=== PATIENT | male | born 1970 | race Caucasian/White ===

== ENCOUNTER → 2022-10-22 | Outpatient (CLI) | payer OTHER, SELFPAY ==
[2022-10-22 07:08] LABS: Basophil# 0.03 X10^3/uL; Basophil% 0.4 % (0-1); Eosinophil# 0.09 X10^3/uL; Eosinophils% 1.1 % (0-5); Hematocrit 43.7 % (40-54); Hemoglobin 14.6 g/dL (13.0-16.5); Lymphocyte % 27.9 % (19-41); Mean Corp Hgb Conc 33.4 g/dL (32-36); Mean Corpuscular Volume 89.9 fL (80-94); Mean Platelet Vol. 8.7 fl (6.2-12.0); Monocyte# 0.76 X10^3/uL; Monocyte% 9.2 % (0-10); NRBC Flagged by Analyzer 0 % (0-5); Neutrophil # 5.04 X10^3/uL (2.7-7.7); Platelet Count 281 K/mm3 (150-450); RBC Distribution Width CV 12.4 % (11.6-14.6); RBC Distribution Width SD 40.4 fl (35.1-43.9); Red Blood Count 4.86 M/mm3 (4.6-6.2); White Blood Count 8.3 K/mm3 (4.4-11.0)
[2022-10-22 07:43] LABS: ALB/GLOB Ratio 1.1 RATIO (0.9-2.4); AST(SGOT) 23 U/L (15-37); Alanine Aminotransfer ALT/SGPT 42 U/L (16-61); Albumin, Serum 3.9 g/dL (3.2-5.0); Alkaline Phosphatase 82 U/L (45-117); Anion Gap 7 (5-15); BUN 18 mg/dL (7-18); BUN/Creat Ratio 17.8 RATIO (10-20); Calcium,Total 9.2 mg/dL (8.5-10.1); Chloride 103 mmol/L (98-107); Cholesterol 206 mg/dL (200); Creatinine, Serum 1.01 mg/dL (0.70-1.30); EST Glomerular Filtration Rate 82 mL/min (>60); Est Glom Filt Rate - Afr Amer 99 mL/min (>60); Globulin 3.6 g/dL (2.2-4.2); Glucose 116 mg/dL (74-106); High Density Lipoprotein 52 mg/dL; PSA,Total - Annual Screen 0.72 ng/mL (0.00-4.00); Potassium 4.1 mmol/L (3.5-5.1); Protein, Total 7.5 g/dL (6.4-8.2); Sodium Level 137 mmol/L (136-145); Thyroid Stim Hormone (TSH) 2.84 uIU/mL (0.358-3.74); Triglycerides 351 mg/dL; Very Low Density Lipoprotein 70 mg/dL (5-40)
[2022-10-22 08:40] LABS: Vitamin D,25 Hydroxy 19.5 ng/mL
[2022-10-22 08:46] LABS: Hemoglobin A1c 5.5 % (3.8-5.6)
[2022-10-22 11:55] LABS: Insulin 8.6 mU/L (2.6-37.6)
== END | disposition home or self-care (01) ==
LOC: LAB 06:26
PROVIDERS: PCP Internal Medicine; Referring Provider Internal Medicine; Visit Provider Internal Medicine
DX: Z00.00 Encounter for general adult medical examination without abnormal findings (principal); R03.0 Elevated blood-pressure reading, without diagnosis of hypertension; E88.81 Metabolic syndrome and other insulin resistance; Z12.5 Encounter for screening for malignant neoplasm of prostate; E55.9 Vitamin D deficiency, unspecified
CPT/HCPCS: 36415; 80053; 80061; 82306; 83036; 83525; 84153; 84443; 85025; G0103

== ENCOUNTER → 2023-04-18 | Outpatient (CLI) | payer OTHER, SELFPAY ==
[2023-04-24 17:13] LABS: Lyme IgG P18 Ab Absent (.); Lyme IgG P23 Ab Absent (.); Lyme IgG P28 Ab Absent (.); Lyme IgG P30 Ab Absent (.); Lyme IgG P39 Ab Absent (.); Lyme IgG P41 Ab Present (.); Lyme IgG P45 Ab Absent (.); Lyme IgG P58 Ab Absent (.); Lyme IgG P66 Ab Absent (.); Lyme IgG P93 Ab Absent (.); Lyme IgG WB Interpretation Negative (.); Lyme IgM P23 Ab Absent (.); Lyme IgM P39 Ab Absent (.); Lyme IgM P41 Ab Absent (.); Lyme IgM WB Interpretation Negative (.)
== END | disposition home or self-care (01) ==
LOC: LAB 16:07
PROVIDERS: PCP Internal Medicine; Referring Provider Chiropractor; Visit Provider Chiropractor
DX: R53.82 Chronic fatigue, unspecified (principal); M25.50 Pain in unspecified joint
CPT/HCPCS: 36415; 86617

== ENCOUNTER → 2024-02-20 | Outpatient (CLI) | payer OTHER, SELFPAY ==
[2024-02-20 09:07] LABS: CRP 8.97 mg/L (0.0-3.0); Uric Acid 5.8 mg/dL (3.5-7.2)
[2024-02-20 09:17] LABS: Erythrocyte Sedimentation Rate 2 mm/hr (0-20)
== END | disposition home or self-care (01) ==
PROVIDERS: PCP Internal Medicine; Referring Provider Internal Medicine; Visit Provider Internal Medicine
DX: M10.9 Gout, unspecified (principal); Z12.5 Encounter for screening for malignant neoplasm of prostate
CPT/HCPCS: 36415; 84153; 84550; 85652; 86140; G0103

== ENCOUNTER 2024-11-18 06:34 | Day surgery (SDC) | payer OTHER, SELFPAY ==
[2024-11-18] VITALS (8 sets, daily range): BP systolic 105–131; BP diastolic 73–88; PULSE 69–79; RESP 16; TEMP 36.4–36.9; O2SAT 93–97
--- NOTE | 2024-11-18 06:57 | PCM.HP.STD ---
[facility] - General General Date of Admission: 11/18/24 Date of Service: 11/18/24 Chief Complaint: Screening colonoscopy [facility] Narrative SAMMY JOLLEY, is a 54 M who presents today for screening colonoscopy. He has not had a colonoscopy in the past he has past medical history of gout, hypertension and osteoarthritis. He does not take any medicines on a daily basis. Overall he is in very good health. [facility] Medical History Wears glasses Wears dentures Alcohol use Restless legs Heartburn Former smoker Hyperlipidemia Hypertriglyceridemia Diarrhea Home Medications ?Medication ?Instructions ?Recorded ?Last Taken ?Type NK 10/09/24 Unknown History Allergy/AdvReac Type Severity Reaction Status Date / Time No Known Allergies Allergy Verified 11/18/24 06:54 Family History Father Alcoholism Depression Heart disease Hypertension High cholesterol CVA (cerebral vascular accident) Brother Alcoholism Myocardial infarction age 53 Mother Arthritis Depression Heart disease Hypertension High cholesterol Osteoporosis Thyroid disorder Surgical History History of tonsillectomy History of foot surgery Social History household members: spouse current occupational status: employed leisure activities: hunting Smoking Status: Former smoker pack-years: 2 alcohol intake: current details: 3-6 daily substance use type: does not use what type of physical activity do you participate in: none ROS Constitutional Constitutional: Denies fatigue, fever(s), poor appetite, weight gain or weight loss Gastrointestinal Gastrointestinal: Denies belching, bloating, change in bowel habits, change in stool character, chewing difficulty, coffee ground emesis, constipation, cramping, diarrhea, dyspepsia, dysphagia, early satiety, excessive flatus, fecal incontinence, heartburn, hematemesis, hematochezia, hemorrhoids, loose stools, melena, nausea, odynophagia, rectal bleeding, tenesmus, vomiting or weight changes Physical Exam Const alert, oriented x3, no apparent distress and healthy appearing General Appearance: cooperative GI normal to inspection, nondistended, normoactive bowel sounds, soft to palpation, non-tender and non-distended Percussion: normal to percussion Rectal Exam: deferred Assessment & Plan Assessment/Plan (1) Encounter for screening for malignant neoplasm of colon: PLAN: He was explained alternatives, risk, benefits including not withstanding bleeding, infection, sepsis, perforation, need for discharge and . He will have an ASA of 3.
--- NOTE | 2024-11-18 07:15 | PCM.PRE.AN2 ---
ASA Classification* ASA Classification ASA Classification: 2 Assessment & Plan Anesthesia* Anesthesia Assessment Anesthesia Assessment: Discussed sedation and/or anesthesia options, risks, benefits, and alternatives with patient/parents/legal guardian/POA. Questions invited. The patient/parents/legal guardian/POA seems to understand and agrees to proceed with anesthesia plan. Reviewed the physical assessment, medical history, allergy history and patient home medications list prior to surgery/procedure/anesthetic and documented any changes. Performed airway and anesthesia risk assessments. Anesthesia Type Anesthesia Type: MAC History Source History Obtained from:: Patient and Chart Anesthesia Focused Assessment* Temperature: 98.4 F Pulse Rate: 69 Blood Pressure: 131/88 Respiratory Rate: 16 Pulse Ox: 97 Oxygen Delivery Method: Room Air Airway Assessment Mouth opens: >3 cm Mallampati Score: IV Teeth Condition: Dentures (Patient has full top dentures. They are out.) and Missing (Several missing teeth on the bottom. Rest are tight.) Neck Range of motion (ROM): Limited ROM (Slight decrease extension) Focused Labs Anesthesia Preop lab: CBC WBC 8.3 K/mm3 (4.4-11.0) 10/22/22 06:28 10/22/22 RBC 4.86 M/mm3 (4.6-6.2) 10/22/22 06:28 10/22/22 Hgb 14.6 g/dL (13.0-16.5) 10/22/22 06:28 10/22/22 Hct 43.7 % (40-54) 10/22/22 06:28 10/22/22 Plt Count 281 K/mm3 (150-450) 10/22/22 06:28 10/22/22 CHEMISTRY Potassium 4.1 mmol/L (3.5-5.1) 10/22/22 06:28 10/22/22 Sodium 137 mmol/L (136-145) 10/22/22 06:28 10/22/22 BUN 18 mg/dL (7-18) 10/22/22 06:28 10/22/22 Creatinine 1.01 mg/dL (0.70-1.30) 10/22/22 06:28 10/22/22 Glucose 116 mg/dL (74-106) H 10/22/22 06:28 10/22/22 TSH 2.84 uIU/mL (0.358-3.74) 10/22/22 06:28 10/22/22 COAG Pre-Assessment Diagnosis/Proposed Procedure Planned Operative Procedure(s): COLONOSCOPY Anesthesia History Anesthesia History - garment parts cutter hand: Anesthesia History - garment parts cutter hand Hx Hospitalization No 11/16/24 14:12 Any Problems With Anesthesia No 11/16/24 14:12 Cholinesterase deficiency No 11/16/24 14:12 You/Your Family Experience No 11/16/24 14:12 fever (hyperthermia) with Relationship Recent Exposure to Contagious No 11/18/24 06:55 Disease Does patient have nerve No 11/16/24 14:12 stimulator Patient instructed to have device shut off --Does patient have Pacemaker No 11/18/24 06:55 or ICD? When Was Last Pacemaker Check QUESTION #4 FULL TEXT: You/Your Family Experience fever (hyperthermia) with Anesthesia Last Oral Intake Last Oral intake: Last Oral Intake NPO since 04:00 11/18/24 06:55 Meds taken in AM with sips of No 11/18/24 06:55 water? Meds patient instructed to take am of surgery Any additional information?: Yes NPO since: 04:00 (Patient finished prep at 4 AM.) PONV PONV - garment parts cutter hand: PONV - garment parts cutter hand Female No 11/16/24 14:12 HX of Motion Sickness No 11/16/24 14:12 HX of N/V After Surgery No 11/16/24 14:12 Non-Smoker Yes 11/16/24 14:12 Duration of Surgery greater No 11/16/24 14:12 than 60 minutes Number of Risk Factors 1 11/16/24 14:12 PONV Score Low Risk 11/16/24 14:12 Height & Weight Height & Weight: Anesthesia: Height & Weight Height 5 ft 10 in 11/18/24 06:55 Weight: 95 kg 11/18/24 06:55 Body Mass Index (BMI) 30.0 11/18/24 06:55 Respiratory Assessment Respiratory Assessment - garment parts cutter hand: Respiratory Tract Infection Hx - garment parts cutter hand Hx Respiratory Tract Infection No 11/16/24 14:12 STOP Sleep Apnea STOP Sleep Apnea - garment parts cutter hand: STOP Sleep Apnea - garment parts cutter hand Hx Hypertension No 11/16/24 14:12 Hx Sleep Apnea No 11/16/24 14:12 CPAP BIPAP Do you snore loudly (louder Yes 11/16/24 14:12 than talking or can be heard Do you often feel tired/ No 11/16/24 14:12 fatigued/ sleepy during daytime? Has anyone observed you stop No 11/16/24 14:12 breathing during sleep? STOP Results Negative 11/16/24 14:12 QUESTION #5 FULL TEXT : Do you snore loudly (louder than talking or can be heard through closed doors)? Tobacco Use History Tobacco Use History - garment parts cutter hand: Tobacco Use History - garment parts cutter hand Tobacco Use Smoking Status Former smoker 11/16/24 14:12 Hx Tobacco Use No 11/16/24 14:12 Years Smoking Packs Smoked per Day Smoking Cessation Date was No - quit smoking greater 11/16/24 14:12 within the last 15 years than 15 years ago Hx Smoking Cessation Date Hx Smoking Cessation Counseling Hematologic Medial History Hematologic Hx - garment parts cutter hand: Hematologic Medical Hx - physical medicine physician Hx of Blood Transfusion No 11/16/24 14:12 Hx of Transfusion in last 3 No 11/16/24 14:12 Months Date of Last Transfusion (if within last 3 months) Ever experience any problems No 11/16/24 14:12 with transfusion(s)? Specify any problems Hx of Preganancy in last 3 N/A 11/16/24 14:12 Months Nurse Filling Out Transfusion MGRIFFITH 11/16/24 14:12 & Questions: Date: 11/16/24 11/16/24 14:12 Time: 14:14 11/16/24 14:12 Patient unable to answer at this time (ie. confused, unrespo /Reproduction History /Reproductive History - garment parts cutter hand: /Reproductive Hx- garment parts cutter hand Hx Now Gestational Age (in weeks): EDC: Hx Hx Para Hx [facility] Medical History Wears glasses Wears dentures Alcohol use Restless legs Heartburn Former smoker Hyperlipidemia Hypertriglyceridemia Diarrhea Home Medications ?Medication ?Instructions ?Recorded ?Last Taken ?Type NK 10/09/24 Unknown History Allergy/AdvReac Type Severity Reaction Status Date / Time No Known Allergies Allergy Verified 11/18/24 06:54 Family History Father Alcoholism Depression Heart disease Hypertension High cholesterol CVA (cerebral vascular accident) Brother Alcoholism Myocardial infarction age 53 Mother Arthritis Depression Heart disease Hypertension High cholesterol Osteoporosis Thyroid disorder Surgical History History of tonsillectomy History of foot surgery Social History household members: spouse current occupational status: employed leisure activities: hunting Smoking Status: Former smoker pack-years: 2 alcohol intake: current details: 3-6 daily substance use type: does not use what type of physical activity do you participate in: none Review of Systems (Anesthesia) ROS Narrative System reviewed and no additional complaints, except as documented.
--- NOTE | 2024-11-18 07:45 | COLBX_PTH ---
PATIENT: SAMMY JOLLEY LOC: EN U#:[id number] AGE/SX: 54/M ROOM: RE11/18/[address]: Dr. Daquan Gagnon DO : 1970 BED: DIS: 11/18/2024 SPEC #: [id number] RECD: 11/18/24 11:05 STATUS: HAMLET VAHID #: [id number] JADE: 11/18/24 07:[address]: Daquan Gagnon DEPT: SURGICAL PATHOLOGY RECD BY: Moni Marques ENTERED: 11/18/24 12:08 SP TYPE: COLON BX OT DR: Dr. Yamilka Jasmine MD Tissues: Sigmoid colon biopsy Procedures: Surgery Specimen Level IV HEADER OPERATION: Colonoscopy with polypectomy with cold snare PRE-OP DIAGNOSIS: Encounter for screening for malignant neoplasm of colon TISSUE SUBMITTED: Sigmoid colon polyp per cold snare MICROSCOPIC DIAGNOSIS Sigmoid colon polyp, polypectomy: Fragments of hyperplastic polyp. SJ.mr 11/19/2024 MICROSCOPIC DESCRIPTION Slides are reviewed. GROSS DESCRIPTION Received in fixative is one container labeled with the patient's name and designated Sigmoid colon polyp. The specimen consists of two irregular fragments of light pagan soft tissue that in aggregate measure 0.8 x 0.5 x 0.1 cm. The specimen is totally submitted in one cassette. 11/18/2024 TC:1 CPT:50545
--- NOTE | 2024-11-18 08:46 | OP.CCLET_ITS ---
11/18/2024 Yamilka Jasmine [facility] [address] [place] [address] Re : Colonoscopy procedure for Silver Mendenhall Dear Dr. Jasmine This procedure was performed on Monday, November 18, 2024. My impressions and recommendations are as follows: Impressions : - One 7 mm polyp in the sigmoid colon, removed with a cold snare. Resected and retrieved. - Diverticulosis in the recto-sigmoid colon and in the sigmoid colon. - The examination was otherwise normal on direct and retroflexion views. Recommendations : - Discharge patient to home. - Resume previous diet. - Continue present medications. - Await pathology results. - Repeat colonoscopy in 5 years for surveillance. My findings are described in the full procedure note, which is enclosed. If I can be of further assistance, please feel free to contact me at . Sincerely, Daquan Gagnon, 11/18/2024 8:46:03 AM This report has been signed electronically.
--- NOTE | 2024-11-18 08:46 | OP.COLON_ITS ---
Patient Name: Silver Mendenhall Procedure Date: 11/18/2024 8:18 AM Date of : 1970 Age: 54 Procedure: Colonoscopy Indications: Screening for colorectal malignant neoplasm Providers: Daquan Gagnon DO Referring MD: Yamilka Jasmine Medicines: Monitored Anesthesia Care Patient Profile: This is a 54 year old male. Refer to note in patient chart for documentation of history and physical. Last Colonoscopy: none. The patient's first colonoscopy is today. Complications: No immediate complications. Procedure: Pre-Anesthesia Assessment: - Prior to the procedure, a History and Physical was performed, and patient medications and allergies were reviewed. The patient is competent. The risks and benefits of the procedure and the sedation options and risks were discussed with the patient. All questions were answered and informed consent was obtained. Patient identification and proposed procedure were verified by the physician in the pre-procedure area. Mental Status Examination: alert and oriented. Airway Examination: normal oropharyngeal airway and neck mobility. Respiratory Examination: clear to auscultation. CV Examination: normal. Prophylactic Antibiotics: The patient does not require prophylactic antibiotics. Prior Anticoagulants: The patient has taken no anticoagulant or antiplatelet agents except for NSAID medication. ASA Grade Assessment: II - A patient with mild systemic disease. After reviewing the risks and benefits, the patient was deemed in satisfactory condition to undergo the procedure. The anesthesia plan was to use monitored anesthesia care (MAC). Immediately prior to administration of medications, the patient was re-assessed for adequacy to receive sedatives. The heart rate, respiratory rate, oxygen saturations, blood pressure, adequacy of pulmonary ventilation, and response to care were monitored throughout the procedure. The physical status of the patient was re-assessed after the procedure. After I obtained informed consent, the scope was passed under direct vision. Throughout the procedure, the patient's blood pressure, pulse, and oxygen saturations were monitored continuously. The pediatric colonoscope was introduced through the anus and advanced to the cecum, identified by appendiceal orifice and ileocecal valve. The colonoscopy was performed without difficulty. The patient tolerated the procedure well. The quality of the bowel preparation was adequate. The ileocecal valve, appendiceal orifice, and rectum were photographed. Scope In: 8:28:03 AM Scope Withdrawal Time 0 hours 7 minutes 44 seconds Scope Out: 8:38:11 AM Total Procedure Duration Time 0 hours 10 minutes 8 seconds Findings: The perianal and digital rectal examinations were normal. A 7 mm polyp was found in the sigmoid colon. The polyp was sessile. The polyp was removed with a cold snare. Resection and retrieval were complete. Verification of patient identification for the specimen was done. Estimated blood loss was minimal. A few small-mouthed diverticula were found in the recto-sigmoid colon and sigmoid colon. The exam was otherwise without abnormality on direct and retroflexion views. Impression: - One 7 mm polyp in the sigmoid colon, removed with a cold snare. Resected and retrieved. - Diverticulosis in the recto-sigmoid colon and in the sigmoid colon. - The examination was otherwise normal on direct and retroflexion views. Recommendation: - Discharge patient to home. - Resume previous diet. - Continue present medications. - Await pathology results. - Repeat colonoscopy in 5 years for surveillance. Procedure Code(s): --- Professional --- 08175, Colonoscopy, flexible; with removal of tumor(s), polyp(s), or other lesion(s) by snare technique CPT copyright 2021 [employer]. All rights reserved. The codes documented in this report are preliminary and upon escrow manager review may be revised to meet current compliance requirements. Daquan Gagnon DO 11/18/2024 8:46:03 AM This report has been signed electronically. Number of Addenda: 0 Note Initiated On: 11/18/2024 8:18 AM
--- NOTE | 2024-11-18 08:46 | PCM.POST.ANE ---
Anesthesia: Postop Eval I Current Vital Signs Temperature: 97.6 F Pulse Rate: 78 Blood Pressure: 105/74 Respiratory Rate: 16 Pulse Ox: 97 Oxygen Delivery Method: Room Air Assessment Airway patent: Yes Spontaneous unlabored respirations: Yes Mental status: Asleep nausea: No Vomiting: No Anesthesia Complication: No Fluid Hydration Crystalloid volume administer (ml): 40 Total IV fluid infused: 40 Progress Note Anesthesia document: Postop Eval 1 completed: Yes
--- NOTE | 2024-11-18 09:10 | PCM.POSTANE2 ---
Anesthesia Postop Eval I Sum Postop Eval Completion status Anesthesia document: Postop Eval 1 completed: Yes Anesthesia Postop Eval I Summary Anesthesia Postop Eval I Summary: Anesthesia Postop Eval I: Assessment Summary Airway patent Yes 11/18/24 08:46 [email or web address] Spontaneous unlabored Yes 11/18/24 08:46 [email or web address] respirations Mental status Asleep 11/18/24 08:46 [email or web address] nausea No 11/18/24 08:46 [email or web address] Vomiting No 11/18/24 08:46 [email or web address] Anesthesia Postop Eval I: Fluid Summary Crystalloid volume administer 40 11/18/24 08:46 [email or web address] (ml) Colloids volume administered ( ml) Blood Product volume administered (ml) Total IV fluid infused 40 11/18/24 08:46 [email or web address] Anesthesia Postop Eval I: Summary Notes Anesthesia Complication No 11/18/24 08:46 [email or web address] Anesthesia Complication Comment: Post-operative progress note Anesthesia: Postop Eval II Evaluation Mental status: Awake and Calm Pain Level: 0 nausea: No Vomiting: No Complications Anesthesia Complication: No
== END 2024-11-18 09:25 | disposition home or self-care (01) ==
LOC: EN 06:34 → AC 06:35
PROVIDERS: PCP Internal Medicine; Referring Provider Internal Medicine; Visit Provider Internal Medicine Gastroenterology
PROC: 0DJD8ZZ Inspection of Lower Intestinal Tract, Via Natural or Artificial Opening Endoscopic (ICD-10-PCS; CPT 45378; principal; 2024-11-18 07:40)
DX: Z12.11 Encounter for screening for malignant neoplasm of colon (principal); K63.5 Polyp of colon; Z87.891 Personal history of nicotine dependence; K57.30 Diverticulosis of large intestine without perforation or abscess without bleeding; E78.5 Hyperlipidemia, unspecified; I10 Essential (primary) hypertension
CPT/HCPCS: 45385; 88305; A4216; J2405

== ENCOUNTER → 2025-07-14 | Outpatient (CLI) | payer OTHER, SELFPAY ==
[2025-07-14 07:02] LABS: Hematocrit 43.3 % (40-54); Hemoglobin 15.4 g/dL (13.0-16.5); Immature Granulocytes Count 0.030 X10^3/uL (0.0-0.0); Mean Corp Hgb Conc 35.6 g/dL (32-36); Mean Corpuscular Volume 88.0 fL (80-94); Mean Platelet Vol. 8.6 fl (6.2-12.0); NRBC Flagged by Analyzer 0 % (0-5); Platelet Count 262 K/mm3 (150-450); RBC Distribution Width CV 11.9 % (11.6-14.6); RBC Distribution Width SD 38.4 fl (35.1-43.9); Red Blood Count 4.92 M/mm3 (4.6-6.2); White Blood Count 10.7 K/mm3 (4.4-11.0)
[2025-07-14 07:51] LABS: AST(SGOT) 27 U/L (<=37); Alanine Aminotransfer ALT/SGPT 35 U/L (<=46); Albumin, Serum 4.6 g/dL (3.5-5.0); Alkaline Phosphatase 79 U/L (40-129); Anion Gap 10 (5-15); BUN 22 mg/dL (4-19); BUN/Creat Ratio 22.2 RATIO (10-20); Calcium,Total 9.4 mg/dL (7.6-11.0); Carbon Dioxide 24.5 mmol/L (21.0-32.0); Chloride 104 mmol/L (98-108); Cholesterol 192 mg/dL (<=200); Globulin 2.5 g/dL (2.2-4.2); Glucose 116 mg/dL (70-99); Low Density Lipoprotein Calc. 79 mg/dL; PSA,Total - Annual Screen 1.41 ng/mL (0.02-4.00); Potassium 4.2 mmol/L (3.3-5.1); Triglycerides 329 mg/dL; Very Low Density Lipoprotein 66 mg/dL (5-40); Vitamin B12 414 pg/mL (180-914); Vitamin D,25 Hydroxy 21.7 ng/mL (30-100); cholesterol:hdl ratio screen 4.09
[2025-07-14 09:15] LABS: Uric Acid 8.0 mg/dL (3.5-7.2)
== END | disposition home or self-care (01) ==
LOC: LAB 06:48
PROVIDERS: PCP Internal Medicine; Referring Provider Internal Medicine; Visit Provider Internal Medicine
DX: Z00.00 Encounter for general adult medical examination without abnormal findings (principal); R03.0 Elevated blood-pressure reading, without diagnosis of hypertension; Z12.11 Encounter for screening for malignant neoplasm of colon; E78.5 Hyperlipidemia, unspecified; Z12.5 Encounter for screening for malignant neoplasm of prostate; M10.9 Gout, unspecified; Z13.220 Encounter for screening for lipoid disorders; R73.9 Hyperglycemia, unspecified; E53.8 Deficiency of other specified B group vitamins; E55.9 Vitamin D deficiency, unspecified
CPT/HCPCS: 36415; 80053; 80061; 82306; 82607; 83036; 84153; 84443; 84550; 85025; G0103

== ENCOUNTER → 2025-08-09 | Outpatient (CLI) | payer OTHER, SELFPAY ==
--- NOTE | 2025-08-09 13:52 | STRESSREP_ITS ---
Stress Test Report Date: 08/09/2025 Procedure: Exercise tolerance test Indications: Dyspnea Consent: Per the patient Procedure: The patient exercised on a Drake protocol for 7 minutes and 15 seconds achieving a peak heart rate of 171 bpm (104% predicted maximal heart rate) with a peak blood pressure 212/82 mmHg and a peak MET capacity of approximately 10.1 MET's. The baseline ECG demonstrated sinus rhythm. The peak exercise ECG showed sinus tachycardia. There were about [address] depressions in inferior leads however these were upsloping and did not achieve diagnostic significance for ischemia. Isolated PVCs noted pretest and during exercise. No runs noted. Exaggerated blood pressure response to exercise. The functional capacity was considered good. The patient had no complaints of chest discomfort during exercise or recovery. The examination was discontinued secondary to target heart rate being achieved. Impression: 1. Technically adequate (percent predicted maximal heart rate greater than 85%) exercise tolerance test. No chest pain reported 2. Peak exercise ECG with no diagnostic ischemic changes. Exaggerated blood pressure response to exercise 3. No significant cardiac dysrhythmias noted during exercise or in recovery This note was generated with [employer] software. It may contain incorrect words, spelling, and punctuation that were not noted in checking the note before signing.
== END | disposition home or self-care (01) ==
LOC: CVS 12:21
PROVIDERS: PCP Internal Medicine; Referring Provider Internal Medicine; Visit Provider Internal Medicine
DX: R06.02 Shortness of breath (principal); E78.5 Hyperlipidemia, unspecified; E88.819 Insulin resistance, unspecified; M10.9 Gout, unspecified
CPT/HCPCS: 93017